=== PATIENT | male | born 2000 | race Caucasian/White ===

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

== ENCOUNTER → 2025-04-14 07:05 | Outpatient (CLI) | payer OTHER, SELFPAY ==
--- NOTE | 2025-04-14 07:08 | DI.ECHO.S_ITS ---
[facility]+ [facility] : : [address] : : [place] : : [id number] : : Phone: [phone] Echocardiogram Report + + :Name: BRET BEE Study Date: 04/14/2025 Height: 74 in : :Hospital ReadingLocation: Weight: 240 lb : : Gender: Male BSA: 2.3 m2 : :: 2000 Age: 24 yrs BP: 146/66 mmHg: :Reason For Study: HYPERTENSION, DILATED RIGHT ATRIA, BUBBLE : :STUDY : :Ordering Physician: SHONDA, : :DIANA Moore Performed By: Anna Marie Rincon : :Referring: DIANA MERCHANT : + + Interpretation Summary The left ventricle is normal in size and wall thickness. The left ventricular ejection fraction is normal. The ejection fraction is estimated to be 55-60%. The right ventricle is at the upper limits of normal in size. The right ventricular systolic function is normal. There is no Doppler evidence for an interatrial shunt. Injection of contrast documented no interatrial shunt. No significant valvular pathology seen. The IVC is of normal diameter and collapses greater than 50% with a sniff. This suggests a low right atrial pressure of 3 mm Hg. Procedure: A two-dimensional transthoracic echocardiogram with color flow and Doppler was performed. The study quality was technically adequate. There is no prior echocardiogram noted for this patient. A saline contrast injection was performed to assess for cardiac shunting. The injection was performed through an intravenous line in the left arm. The patient was in sinus rhythm with heart rates between 54-77 bpm during the exam. Left Ventricle: The left ventricle is normal in size and wall thickness. There is no thrombus. The ejection fraction is estimated to be 55-60%. The left ventricular ejection fraction is normal. There are no focal wall motion abnormalities. Normal diastolic function. Right Ventricle: The right ventricle is at the upper limits of normal in size. The right ventricular systolic function is normal. Atria: The left atrial size is normal. Right atrial size is normal. There is no Doppler evidence for an interatrial shunt. Injection of contrast documented no interatrial shunt. Mitral Valve: There is a flat closure plane of the the mitral valve leaflets. The mitral valve is normal. There is trace mitral regurgitation. Aortic Valve: The aortic valve is trileaflet. The aortic valve opens well. There is no aortic valve stenosis. No aortic regurgitation is present. Tricuspid Valve: The tricuspid valve leaflets are thin and pliable. Pulmonary artery pressures cannot be estimated because of the lack of a measurable TR jet velocity but the IVC suggests a CVP of around 3 mmHg. There is trace tricuspid regurgitation. Pulmonic Valve: The pulmonic valve leaflets are thin and pliable; valve motion is normal. There is a trace or physiologic amount of pulmonic regurgitation. Great Vessels: The aortic root is normal size. The dimensions of the ascending aorta are normal. The IVC is of normal diameter and collapses greater than 50% with a sniff. This suggests a low right atrial pressure of 3 mm Hg. Pericardium/ Pleura There is no pericardial effusion. There is no pleural effusion. MMode/2D Measurements & Calculations LVIDd: 4.7 cm LVOT diam: 2.5 cm LVIDs: 3.4 cm Ao root diam: 3.4 cm FS: 28.4 % asc Aorta Diam: 2.6 cm EPSS: 0.56 cm Ao Arch Diam (Prox Trans): 2.4 cm IVSd: 0.96 cm LVPWd: 1.0 cm LV neri. diameter/BSA (cm/m^2): 2.0 LV sys. diameter/BSA (cm/m^2): 1.4 LA A2 area: 20.5 cm2 RA long axis: 4.9 cm LA A4 area: 18.0 cm2 RA area: 18.3 cm2 LA length (vol): 5.1 cm RA vol: 57.6 ml LA vol: 61.9 ml RA : 24.5 ml/m2 LA vol index: 26.3 ml/m2 IVC diam: 1.5 cm RVD1 (basal): 4.4 cm RVD2 (mid): 3.7 cm TAPSE: 1.8 cm Doppler Measurements & Calculations Ao V2 max: 134.6 cm/sec LVOT Max Galdino: 89.8 cm/sec Ao V2 mean: 93.0 cm/sec LV V1 max P.2 mmHg Ao max P.2 mmHg LV V1 VTI: 17.6 cm Ao mean P.9 mmHg SHERLYN(I,D): 3.3 cm2 Ao V2 VTI: 25.8 cm SHERLYN(V,D): 3.2 cm2 sev ratio: 0.68 SHERLYN indexed to BSA (cm^2/m^2): 1.4 MV E max galdino: 104.7 cm/sec PA V2 max: 104.5 cm/sec MV A max galdino: 36.7 cm/sec PA V2 mean: 71.7 cm/sec MV E/A: 2.9 PA mean P.3 mmHg Med Peak E' Galdino: 17.5 cm/sec PA pr(Accel): 17.8 mmHg E/E' med: 6.0 Lat Peak E' Galdino: 22.2 cm/sec E/E' lat: 4.7 E/e' average: 5.4 MV dec time: 0.17 sec MVA(VTI): 2.9 cm2 MV V2 mean: 63.3 cm/sec SV(LVOT): 84.0 ml MV mean P.8 mmHg MV V2 VTI: 28.8 cm Reading Physician:10:23 AM
== END ==
LOC: ECHO 07:07
PROVIDERS: PCP Family Medicine; Referring Provider Family Medicine; Visit Provider Family Medicine
DX: I10 Essential (primary) hypertension (principal); I51.7 Cardiomegaly
CPT/HCPCS: 93306